=== PATIENT | female | born 1950 | race Caucasian/White ===

== ENCOUNTER 2017-01-10 12:38 | Emergency (ER) | payer MEDICARE, BC ==
[~2017-01-10] VITALS: Ht 160 cm; Wt 88.0 kg
[~2017-01-10 12:38] MED LIST: LORTAB5 OR; NO HOME MEDS PER PT
[2017-01-10 13:35] LABS: HEMATOCRIT 42.3 % (37.0-47.0); HEMOGLOBIN 14.2 g/dl (12.0-16.0); IMMATURE GRANULOCYTES 0.2 % (0.0-1.0); MEAN CELL VOLUME 89.1 fL CALC (80.0-100.0); MEAN CORPUSCULAR HGB 29.9 pG CALC (26.0-32.0); MEAN CORPUSCULAR HGB CONC 33.6 g/L CALC (32.0-36.0); NEUT# 4.55 thou/uL (2.00-7.15); RED BLOOD COUNT 4.75 mill/uL (4.20-5.60); RED CELL DISTRI WIDTH 12.3 % (11.5-15.5)
[2017-01-10 13:35] LABS: URINE BILIRUBIN - DIPSTICK NEGATIVE (NEGATIVE); URINE BLOOD DIPSTICK TRACE-INTACT (NEGATIVE); URINE CLARITY CLEAR; URINE COLOR YELLOW; URINE GLUCOSE - DIPSTICK NEGATIVE (NEGATIVE); URINE KETONE NEGATIVE (NEGATIVE); URINE LEUK ESTERASE NEGATIVE (NEGATIVE); URINE NITRITE - DIPSTICK NEGATIVE (Negative); URINE PH 5.5 (4.5-8.0); URINE PROTEIN - DIPSTICK NEGATIVE (NEG-TRACE); URINE UROBILINOGEN - DIPSTICK 0.2 E.U./dL (0.2)
[2017-01-10 14:25] LABS: ALBUMIN 4.5 g/dL (3.2-5.0); ALKALINE PHOSPHATASE 102 u/l (38-126); ANION GAP 15 (6-22 (CALC)); BILIRUBIN, TOTAL 0.7 mg/dL (0.0-1.4); BUN 11 mg/dL (8-23); BUN/CREATININE RATIO 14 (12-20 (CALC)); CALCIUM 9.6 mg/dL (8.4-10.2); CARBON DIOXIDE 23 mmol/l (22-30); CHLORIDE 107 mmol/l (95-108); CREATININE 0.8 mg/dL (0.5-1.0); GFR > 60 ML/MIN (>=60 (CALC)); GFR FOR AFR.AMER. > 60 ML/MIN (>=60 (CALC)); GLUCOSE 111 mg/dL (82-115); POTASSIUM 4.1 mmol/l (3.5-5.1); SGOT/AST 37 u/l (9-36); SGPT/ALT 41 u/l (11-66); SODIUM 141 mmol/l (137-146); TOTAL PROTEIN 8.2 g/dL (6.3-8.2)
[2017-01-10 14:37] LABS: MYOGLOBIN 26 ng/mL (0 - 62)
[2017-01-10] MEDS ORDERED: ZESTRIL5 M1 PO (15:04)
[2017-01-10] MEDS ORDERED: PRINIVIL5 MG PO (15:06)
[2017-01-10 15:13] VITALS: BP 141/74
== END 2017-01-10 15:19 | disposition left against medical advice (07) ==
LOC: ED 12:38 → ED-I 14:58 → ED 15:19
PROVIDERS: Emergency Medicine
DX: R42 Dizziness and giddiness (principal); Z91.19 Patient's noncompliance with other medical treatment and regimen; I10 Essential (primary) hypertension; R53.81 Other malaise; R00.2 Palpitations

== ENCOUNTER 2017-03-11 13:54 | Observation (INO) | payer MEDICARE, BC ==
[~2017-03-11] VITALS: Ht 160 cm; Wt 84.8 kg
[~2017-03-11 13:54] MED LIST changes: +PRINIVIL5 MG PO; +ZESTRIL5 M1 PO
[2017-03-11] MEDS ORDERED: METO25TAB PO (14:01)
[2017-03-11] MEDS ORDERED: ZESTRIL10 M1 PO (14:02)
[2017-03-11] MEDS ORDERED: ATORVASTATIN CA20 MG PO (14:02)
[2017-03-11 14:28] LABS: HEMATOCRIT 42.6 % (37.0-47.0); IMMATURE GRANULOCYTES 0.3 % (0.0-1.0); MEAN CELL VOLUME 92.2 fL CALC (80.0-100.0); MEAN CORPUSCULAR HGB 30.3 pG CALC (26.0-32.0); MEAN CORPUSCULAR HGB CONC 32.9 g/L CALC (32.0-36.0); NEUT# 6.04 thou/uL (2.00-7.15); RED BLOOD COUNT 4.62 mill/uL (4.20-5.60); RED CELL DISTRI WIDTH 12.2 % (11.5-15.5)
[2017-03-11 14:35] LABS: ALBUMIN 4.3 g/dL (3.2-5.0); ALKALINE PHOSPHATASE 108 u/l (38-126); ANION GAP 18 (6-22 (CALC)); BILIRUBIN, TOTAL 0.6 mg/dL (0.0-1.4); BUN 15 mg/dL (8-23); BUN/CREATININE RATIO 20 (12-20 (CALC)); CALCIUM 9.7 mg/dL (8.4-10.2); CARBON DIOXIDE 25 mmol/l (22-30); CHLORIDE 104 mmol/l (95-108); CREATININE 0.7 mg/dL (0.5-1.0); GFR > 60 ML/MIN (>=60 (CALC)); GFR FOR AFR.AMER. > 60 ML/MIN (>=60 (CALC)); GLUCOSE 142 mg/dL (82-115); LIPASE 230 u/l (23-300); POTASSIUM 3.8 mmol/l (3.5-5.1); SGOT/AST 32 u/l (9-36); SGPT/ALT 39 u/l (11-66); SODIUM 143 mmol/l (137-146); TOTAL PROTEIN 7.6 g/dL (6.3-8.2)
[2017-03-11 14:50] LABS: MYOGLOBIN 19 ng/mL (0 - 62)
[2017-03-11 17:30] VITALS: BP 145/56
[2017-03-11 17:45] VITALS: BP 156/63
[2017-03-11 18:00] VITALS: BP 146/68
[2017-03-11 18:15] VITALS: BP 146/70
[2017-03-11 20:02] LABS: URINE BILIRUBIN - DIPSTICK NEGATIVE (NEGATIVE); URINE BLOOD DIPSTICK NEGATIVE (NEGATIVE); URINE CLARITY CLEAR; URINE COLOR YELLOW; URINE GLUCOSE - DIPSTICK NEGATIVE (NEGATIVE); URINE KETONE 40 mg/dL (NEGATIVE); URINE LEUK ESTERASE NEGATIVE (Negative); URINE NITRITE - DIPSTICK NEGATIVE (Negative); URINE PH 6.5 (4.5-8.0); URINE PROTEIN - DIPSTICK NEGATIVE (NEG-TRACE); URINE SPECIFIC GRAVITY 1.025; URINE UROBILINOGEN - DIPSTICK 0.2 E.U./dL (0.2)
[2017-03-11 20:40] VITALS: BP 115/58
[2017-03-12 00:35] VITALS: BP 133/60
[2017-03-12 08:00] VITALS: BP 166/73
[2017-03-12 08:49] VITALS: BP 166/73
[2017-03-12] MEDS ORDERED: FLORASTOR250 M1 PO (11:53)
[2017-03-12] MEDS ORDERED: CIPROFLOXACN500 MG PO (11:53)
[2017-03-12] MEDS ORDERED: METRONIDAZOL500 MG PO (11:53)
== END 2017-03-12 13:45 | disposition home or self-care (01) ==
LOC: ENPENDDIS → ED 13:54 → ED-I 15:25 → ED 16:57 → ICU 16:58
PROVIDERS: Emergency Medicine; ADMIT Internal Medicine; ATTEND Internal Medicine
DX: K80.00 Calculus of gallbladder with acute cholecystitis without obstruction (principal); I10 Essential (primary) hypertension; E78.5 Hyperlipidemia, unspecified; R94.31 Abnormal electrocardiogram [ECG] [EKG]
CPT/HCPCS: J1650

== ENCOUNTER 2017-09-23 10:35 | Emergency (ER) | payer MEDICARE, BC ==
[~2017-09-23] VITALS: Ht 160 cm; Wt 80.0 kg
[~2017-09-23 10:35] MED LIST changes: +ATORVASTATIN CA20 MG PO; +CIPROFLOXACN500 MG PO; +FLORASTOR250 M1 PO; +METO25TAB PO; +METRONIDAZOL500 MG PO; +ZESTRIL10 M1 PO
[2017-09-23] MEDS ORDERED: TRAMADOL HCL50 MG PO (10:51)
[2017-09-23] MEDS ORDERED: PERCOCET 5/325M1 TAB PO (11:20)
[2017-09-23 11:35] VITALS: BP 138/82
== END 2017-09-23 11:35 | disposition home or self-care (01) ==
LOC: ED 10:35
DX: S83.281A Other tear of lateral meniscus, current injury, right knee, initial encounter (principal); M25.561 Pain in right knee; M25.461 Effusion, right knee

== ENCOUNTER 2019-03-29 08:19 | Day surgery (SDC) | payer MEDICARE, BC ==
[~2019-03-29] VITALS: Ht 160 cm; Wt 86.6 kg
[~2019-03-29 08:19] MED LIST changes: +PERCOCET 5/325M1 TAB PO; +TRAMADOL HCL50 MG PO; +VITAMIN D32000 UNIT PO
[2019-03-29 10:38] VITALS: BP 163/83
== END 2019-03-29 10:45 | disposition home or self-care (01) ==
LOC: ENDO 08:19 → ORM 08:30 → ENDO 09:45
PROVIDERS: ATTEND Surgery
PROC: 0DJD8ZZ Inspection of Lower Intestinal Tract, Via Natural or Artificial Opening Endoscopic (ICD-10-PCS; principal; 2019-03-29)
DX: R19.5 Other fecal abnormalities (principal)

== ENCOUNTER 2019-08-01 09:39 | Emergency (ER) | payer MEDICARE, BC ==
[~2019-08-01] VITALS: Ht 160 cm; Wt 88.6 kg
[2019-08-01] MEDS ORDERED: NAPROXEN500 MG PO (10:41)
[2019-08-01 10:54] VITALS: BP 138/78
== END 2019-08-01 10:54 | disposition home or self-care (01) ==
LOC: ED 09:39
DX: S63.501A Unspecified sprain of right wrist, initial encounter (principal); I10 Essential (primary) hypertension; W01.0XXA Fall on same level from slipping, tripping and stumbling without subsequent striking against object, initial encounter; Y92.009 Unspecified place in unspecified non-institutional (private) residence as the place of occurrence of the external cause

== ENCOUNTER 2019-11-19 | Emergency (ER) | payer MEDICARE, BC ==
[~2019-11-19] MED LIST changes: +NAPROXEN500 MG PO
[2019-11-19 10:27] LABS: IMMATURE GRANULOCYTES 0.2 % (0.0-5.0); MEAN CELL VOLUME 88.2 fL CALC (80.0-100.0); MEAN CORPUSCULAR HGB 28.6 pG CALC (26.0-32.0); MEAN CORPUSCULAR HGB CONC 32.4 g/L CALC (32.0-36.0); NEUT# 2.04 thou/uL (2.00-7.15); RED BLOOD COUNT 3.99 mill/uL (4.20-5.60); RED CELL DISTRI WIDTH 13.4 % (11.5-15.5)
[2019-11-19 10:29] LABS: URINE BLOOD DIPSTICK NEGATIVE (NEGATIVE); URINE COLOR YELLOW; URINE GLUCOSE - DIPSTICK NEGATIVE (NEGATIVE); URINE KETONE NEGATIVE (NEGATIVE); URINE LEUK ESTERASE NEGATIVE (NEGATIVE); URINE NITRITE - DIPSTICK NEGATIVE (Negative); URINE PROTEIN - DIPSTICK NEGATIVE (NEG-TRACE); URINE SPECIFIC GRAVITY >=1.030; URINE UROBILINOGEN - DIPSTICK 0.2 E.U./dL (0.2)
[2019-11-19 10:30] LABS: URINE BILIRUBIN - DIPSTICK SMALL (NEGATIVE)
[2019-11-19 10:30] LABS: HEMATOCRIT 35.2 % (37.0-47.0); HEMOGLOBIN 11.4 g/dl (12.0-16.0)
[2019-11-19 10:35] LABS: BARBITURATES NEGATIVE (NEGATIVE); COCAINE NEGATIVE (NEGATIVE); METHADONE NEGATIVE (NEGATIVE); OXCYCODONE NEGATIVE (NEGATIVE); TETRAHYDROCANNABIONOL NEGATIVE (NEGATIVE); TRICYLIC ANTIDEPRESSANTS POSITIVE (NEGATIVE)
[2019-11-19 11:01] LABS: INTERNATIONAL NORMALIZED RATIO 0.9 RATIO (0.7-1.3); PROTHROMBIN TIME 9.7 SECONDS (9.0-12.5)
[2019-11-19 11:04] LABS: ALBUMIN 4.1 g/dL (3.2-5.0); ALKALINE PHOSPHATASE 82 u/l (38-126); ANION GAP 11 (6-22 (CALC)); BILIRUBIN, TOTAL 0.9 mg/dL (0.0-1.4); BUN 18 mg/dL (8-23); BUN/CREATININE RATIO 26 (12-20 (CALC)); CARBON DIOXIDE 26 mmol/l (22-30); CHLORIDE 105 mmol/l (95-108); CREATININE 0.7 mg/dL (0.5-1.0); ETHYL ALCOHOL 0 mg/dl (0-30); GFR > 60 ML/MIN (>=60 (CALC)); GFR FOR AFR.AMER. > 60 ML/MIN (>=60 (CALC)); POTASSIUM 4.6 mmol/l (3.5-5.1); SGOT/AST 38 u/l (9-36); SODIUM 137 mmol/l (137-146); TOTAL PROTEIN 7.4 g/dL (6.3-8.2)
== END 2019-11-19 11:45 | disposition home or self-care (01) ==
DX: R53.1 Weakness (principal); R00.2 Palpitations; I10 Essential (primary) hypertension

== ENCOUNTER 2021-06-27 08:24 | Outpatient (REF) | payer MEDICARE, BC ==
[2021-06-27 09:39] VITALS: BP 148/72; BP 168/88
== END 2021-06-27 13:20 | disposition home or self-care (01) ==
LOC: MSOP 08:24 → INF 08:24 → MSOP 10:56
PROVIDERS: ATTEND Internal Medicine
DX: D50.8 Other iron deficiency anemias (principal)

== ENCOUNTER 2022-04-27 08:09 | Emergency (ER) | payer MEDICARE, BC ==
[~2022-04-27] VITALS: Ht 160 cm; Wt 80.9 kg
[2022-04-27 09:04] LABS: URINE BILIRUBIN - DIPSTICK NEGATIVE (NEGATIVE); URINE BLOOD DIPSTICK TRACE-INTACT (NEGATIVE); URINE COLOR YELLOW; URINE GLUCOSE - DIPSTICK NEGATIVE (NEGATIVE); URINE KETONE NEGATIVE (NEGATIVE); URINE PROTEIN - DIPSTICK NEGATIVE (NEG-TRACE); URINE SPECIFIC GRAVITY <=1.005; URINE UROBILINOGEN - DIPSTICK 0.2 E.U./dL (0.2)
[2022-04-27 09:05] LABS: IMMATURE GRANULOCYTES 0.2 % (0.0-5.0); MEAN CORPUSCULAR HGB 31.3 pG CALC (26.0-32.0); NEUT# 3.46 thou/uL (2.00-7.15); RED BLOOD COUNT 4.63 mill/uL (4.20-5.60); RED CELL DISTRI WIDTH 12.1 % (11.5-15.5)
[2022-04-27 09:08] LABS: HEMOGLOBIN 14.5 g/dl (12.0-16.0)
[2022-04-27 09:09] LABS: URINE EPITHELIAL CELLS FEW EPI/hpf (0-FEW); URINE LEUK ESTERASE LARGE (NEGATIVE); URINE NITRITE - DIPSTICK NEGATIVE (Negative); URINE RBC 0-2 RBC/hpf (0-5)
[2022-04-27 09:11] LABS: URINE BACTERIA FEW hpf
[2022-04-27 09:16] LABS: ALKALINE PHOSPHATASE 104 u/l (38-126); ANION GAP 13 (6-22 (CALC)); BUN 12 mg/dL (8-23); BUN/CREATININE RATIO 18 (12-20 (CALC)); CARBON DIOXIDE 22 mmol/l (22-30); CHLORIDE 107 mmol/l (95-108); CREATININE 0.7 mg/dL (0.5-1.0); GFR FOR AFR.AMER. > 60 ML/MIN (>=60 (CALC)); GFR OTHER RACES > 60 ML/MIN (>=60 (CALC)); LIPASE 207 u/l (23-300); POTASSIUM 4.1 mmol/l (3.5-5.1); SGOT/AST 34 u/l (9-36); SODIUM 137 mmol/l (137-146)
[2022-04-27 09:20] LABS: BILIRUBIN, TOTAL 1.1 mg/dL (0.0-1.4)
[2022-04-27 11:10] VITALS: BP 161/102
== END 2022-04-27 11:18 | disposition short-term general hospital (02) ==
LOC: ED 08:09
PROVIDERS: Family Medicine
DX: I20.0 Unstable angina (principal); U07.1 COVID-19; N39.0 Urinary tract infection, site not specified; I10 Essential (primary) hypertension; B95.1 Streptococcus, group B, as the cause of diseases classified elsewhere
CPT/HCPCS: J1644; Q9967

== ENCOUNTER 2022-09-21 07:42 | Day surgery (SDC) | payer MEDICARE, BC ==
[~2022-09-21] VITALS: Ht 160 cm; Wt 82.6 kg
[~2022-09-21 07:42] MED LIST changes: +CHOLESTYRAMINE4 G1 PO; +IRON28 M1 PO; +PROTONIX40 M2 PO; +VITAMIN D325 MCG PO
[2022-09-21 11:04] VITALS: BP 173/89
== END 2022-09-21 10:58 | disposition home or self-care (01) ==
LOC: ENDO 07:42
PROVIDERS: ATTEND Internal Medicine Gastroenterology
PROC: 0DB98ZX Excision of Duodenum, Via Natural or Artificial Opening Endoscopic, Diagnostic (ICD-10-PCS; principal; 2022-09-21)
PROC: 0DB78ZX Excision of Stomach, Pylorus, Via Natural or Artificial Opening Endoscopic, Diagnostic (ICD-10-PCS; 2022-09-21)
PROC: 0DB48ZX Excision of Esophagogastric Junction, Via Natural or Artificial Opening Endoscopic, Diagnostic (ICD-10-PCS; 2022-09-21)
DX: K29.50 Unspecified chronic gastritis without bleeding (principal); K44.9 Diaphragmatic hernia without obstruction or gangrene; K22.89 Other specified disease of esophagus; K21.9 Gastro-esophageal reflux disease without esophagitis; Z79.899 Other long term (current) drug therapy; Z90.49 Acquired absence of other specified parts of digestive tract

== ENCOUNTER 2023-11-15 06:39 | Day surgery (SDC) | payer MEDICARE, BC ==
[~2023-11-15] VITALS: Ht 160 cm; Wt 82.6 kg
[2023-11-15 08:26] VITALS: BP 167/82
== END 2023-11-15 08:35 | disposition home or self-care (01) ==
LOC: ORM 06:39
PROVIDERS: ATTEND Internal Medicine Gastroenterology
PROC: 0DB48ZX Excision of Esophagogastric Junction, Via Natural or Artificial Opening Endoscopic, Diagnostic (ICD-10-PCS; principal; 2023-11-15)
PROC: 0DB78ZX Excision of Stomach, Pylorus, Via Natural or Artificial Opening Endoscopic, Diagnostic (ICD-10-PCS; 2023-11-15)
DX: K22.70 Barrett's esophagus without dysplasia (principal); K44.9 Diaphragmatic hernia without obstruction or gangrene; K29.70 Gastritis, unspecified, without bleeding; K31.89 Other diseases of stomach and duodenum; I10 Essential (primary) hypertension; E78.00 Pure hypercholesterolemia, unspecified; Z90.49 Acquired absence of other specified parts of digestive tract